=== PATIENT | male | born 1970 | race Caucasian/White ===

== ENCOUNTER 2016-08-14 16:05 | Emergency (ER) | payer MEDICARE ==
[2016-08-14 16:50] LABS: ABSOLUTE NEUTROPHIL COUNT 8.4 K/mm3 (1.8-7.7); BASO % 0.3 % (0.2-1.0); EOS % 0.1 % (0.9-2.9); HEMATOCRIT 45.8 % (32.0-52.0); HEMOGLOBIN 14.6 gm/l (14.0-18.0); IMM NEUT # 0.1 K/mm3 (0-0.2); IMM NEUT% 0.6 % (0-1); LYMPH # 1.3 (1.0-4.8); LYMPH % 12.5 % (15-45); MEAN CELL VOLUME 93.7 fl (80.0-94.0); MEAN CORPUSCULAR HEMOGLOBIN 29.9 pg (27.0-31.0); MEAN CORPUSCULAR HGB CONC 31.9 g/dl (33.0-37.0); MEAN PLATELET VOLUME 9.1 fl (7.4-10.4); MONO # 0.3 (0.0-0.8); MONO % 2.6 % (4-12); NEUT % 83.9 % (43-75); PLATELET COUNT 172 K/mm3 (130-400); RED CELL DISTRIBUTION WIDTH 12.4 % (11.5-14.5)
[2016-08-14] MEDS ORDERED: HYDROCORTISONE SOD SUCC 100 MG VIAL ONE (16:58)
[2016-08-14] MEDS ORDERED: SODIUM CHLORIDE 0.9% 1,000 ML ONE (16:58)
[2016-08-14 17:57] LABS: ALB/GLOB RATIO 1.1 (>1.0); ALBUMIN 3.9 gm/dL (3.5-5.7); CALCIUM 8.8 mg/dL (8.6-10.3)
== END 2016-08-14 16:07 | disposition home or self-care (01) ==
LOC: ED 16:05
DX: E27.1 Primary adrenocortical insufficiency (principal); R42 Dizziness and giddiness; I95.1 Orthostatic hypotension; R00.1 Bradycardia, unspecified
CPT/HCPCS: 83690; 85025; 80053; 99284 ×2; 96374; 96361; 82962; 93226; 93225; 93005; J1720; J7030